=== PATIENT | male | born 1960 | race Caucasian/White ===

== ENCOUNTER 2020-05-03 09:09 | Inpatient (IN) ==
[2020-05-03] MEDS ORDERED: Morphine Sulfate 2 MG/ML SYRINGE IVP ONE (09:34)
[2020-05-03 10:21] LABS: Basophils # 0.1 K/mcL (0.0-0.2); Basophils % 0.9 %; Eosinophils # 0.3 K/mcL (0.0-0.6); Eosinophils % 3.7 %; Hematocrit 43.4 % (37.5-50.1); Immature Granulocytes % 0.3 % (0-4); Lymphocytes # 1.8 K/mcL (0.6-4.6); Mean Corpuscular HGB Conc 34.6 g/dL (31.6-35.5); Mean Corpuscular Hemoglobin 37.7 pg (28.0-33.3); Mean Platelet Volume 9.7 fL (9.4-12.4); Monocytes # 0.6 K/mcL (0.0-1.3); Monocytes % 9.1 %; Neutrophils # 4.2 K/mcL (1.6-8.9); Platelet Count 226 K/mcL (140-400); Red Blood Count 3.98 M/mcL (4.19-5.50); Red Cell Distribution Width 12.2 % (11.5-14.5)
[2020-05-03 10:34] LABS: BUN/Creatinine Ratio 11 (6-26); Blood Urea Nitrogen 8 mg/dL (8-23); Calcium 9.3 mg/dL (8.6-10.3); Carbon Dioxide 25 mEq/L (23-29); Chloride 103 mEq/L (98-107); Glucose 74 mg/dL (70-105); Osmolality,Calculated 279 (280-300); Potassium 3.7 mEq/L (3.5-5.1); Sodium 136 mEq/L (136-145); eGFR For African Americans > 60 (> 60); eGFR For Non-African Americans > 60 (> 60)
[2020-05-03] MEDS ORDERED: Ondansetron 4 MG/2 ML VIAL IVP PRN (11:35)
[2020-05-03] MEDS ORDERED: *HR* OxyCODONE Immed Rel 5 MG TABLET PO PRN (11:35)
[2020-05-03] MEDS ORDERED: Naloxone 0.4 MG/ML INJ IVP PRN (11:35)
[2020-05-03] MEDS ORDERED: Acetaminophen 325 MG TABLET PO PRN (11:35)
[2020-05-03] MEDS: *HR* HYDROcodone/Acet 5/325 mg TABLET PO PRN ×2 (14:09→20:25)
[2020-05-03] MEDS: Gabapentin 300 MG CAPSULE PO SCH ×2 (14:09→20:25)
[2020-05-03] MEDS: *HR* Heparin 5,000 UNIT/ML VIAL SQ SCH (17:07)
[2020-05-04 04:03] LABS: BUN/Creatinine Ratio 15 (6-26); Blood Urea Nitrogen 12 mg/dL (8-23); Calcium 9.2 mg/dL (8.6-10.3); Carbon Dioxide 27 mEq/L (23-29); Chloride 102 mEq/L (98-107); Glucose 93 mg/dL (70-105); Osmolality,Calculated 281 (280-300); Potassium 4.3 mEq/L (3.5-5.1); Sodium 136 mEq/L (136-145); eGFR For African Americans > 60 (> 60); eGFR For Non-African Americans > 60 (> 60)
[2020-05-04] MEDS: *HR* Heparin 5,000 UNIT/ML VIAL SQ SCH (06:45)
[2020-05-04] MEDS ORDERED: *HR* Acetylcysteine 20% 600 MG/3 ML ORAL SYRINGE PO SCH (09:00)
[2020-05-04] MEDS ORDERED: Cholecalciferol (D-3) 1,000 UNIT (25MCG) TABLET PO SCH (09:00)
[2020-05-04] MEDS: Gabapentin 300 MG CAPSULE PO SCH (09:03)
[2020-05-04] MEDS: *HR* HYDROcodone/Acet 5/325 mg TABLET PO PRN (09:07)
[2020-05-04] MEDS ORDERED: Albuterol 2.5 MG/3 ML NEBULIZER IH PRN (13:23)
[2020-05-04] MEDS ORDERED: Ondansetron 4 MG/2 ML VIAL IVP PRN (13:23)
[2020-05-04] MEDS ORDERED: *HR* HYDROmorphone (PF) 1 MG/ML SYRINGE IVP PRN (13:23)
[2020-05-04] MEDS ORDERED: *HR* OxyCODONE Immed Rel 5 MG TABLET PO PRN (13:23)
[2020-05-04] MEDS ORDERED: Acetaminophen IV 1,000 MG/100 ML BAG IVPB ONE (13:25)
[2020-05-04] MEDS ORDERED: Vancomycin 1,000 MG VIAL ONE (13:30)
[2020-05-04] MEDS ORDERED: TOTAL JOINT MIXTURE (100ML) INTRAART ONE (13:45)
[2020-05-04] MEDS ORDERED: Povidone-Iodine 45 ML, Sodium Chloride IRRigation 1,000 ML IR ONE (13:45)
[2020-05-04] MEDS ORDERED: *HR* Midazolam HCl 2 MG/2 ML VIAL ONE (14:02)
[2020-05-04] MEDS ORDERED: *HR* HYDROMORPHONE 2 MG/ML VIAL ONE (14:02)
[2020-05-04] MEDS ORDERED: *HR* Propofol 200 MG/20 ML VIAL IVP ONE (14:02)
[2020-05-04] MEDS ORDERED: Lidocaine -MPF 2% 2 ML VIAL ONE (14:03)
[2020-05-04] MEDS ORDERED: Lidocaine -MPF 4% 5 ML AMPUL ONE (14:04)
[2020-05-04] MEDS ORDERED: *HR* Rocuronium Bromide 50 MG/5 ML VIAL ONE ×2 (14:04→16:26)
[2020-05-04] MEDS ORDERED: *HR* PHENYLEPHRINE 1,000 MCG/10 ML SYRINGE IVP ONE ×2 (14:45→17:00)
[2020-05-04] MEDS ORDERED: Ondansetron 4 MG/2 ML VIAL ONE (14:57)
[2020-05-04] MEDS ORDERED: Dexamethasone 4 MG/ML VIAL ONE (14:57)
[2020-05-04] MEDS ORDERED: Tranexamic Acid 1,000 MG/10 ML VIAL ONE (15:04)
[2020-05-04] MEDS ORDERED: Sugammadex Sodium 200 MG/2 ML VIAL IV ONE (17:40)
[2020-05-04] MEDS ORDERED: Ketorolac 30 MG/ML VIAL IVP ONE (18:32)
[2020-05-04] MEDS ORDERED: *HR* Labetalol 100 MG/20 ML MDV IVP PRN (19:03)
[2020-05-04] MEDS: *HR* Labetalol 20 MG/4 ML SYRINGE IVP ONE ×2 (19:05→19:20)
[2020-05-04] MEDS ORDERED: Ringers Solution, Lactated 1,000 ML IVC SCH (20:05)
[2020-05-04] MEDS ORDERED: Sennosides 8.6 MG TABLET PO PRN (20:05)
[2020-05-04] MEDS ORDERED: *HR* Promethazine 25 MG/ML VIAL IM PRN (20:05)
[2020-05-04] MEDS ORDERED: MOM Conc 10 ML UD.LIQ PO PRN (20:05)
[2020-05-05] MEDS: CeFAZolin 2 GM/120 ML BAG IVPB SCH ×2 (00:19→07:37)
[2020-05-05] MEDS: Multivit/Ca/Min/Fe/FA 1 TAB TABLET PO SCH (07:37)
[2020-05-05] MEDS: Ascorbic Acid 500 MG TABLET PO SCH ×2 (07:37→15:36)
[2020-05-05] MEDS: Gabapentin 300 MG CAPSULE PO SCH ×2 (15:36→21:08)
[2020-05-05] MEDS: Aspirin Enteric Coated 81 MG Tablet PO SCH (17:54)
[2020-05-05] MEDS: cephALEXin 500 MG CAPSULE PO SCH (21:09)
[2020-05-06 01:55] LABS: Basophils % 0.2 %; Eosinophils % 0.2 %; Hematocrit 38.8 % (37.5-50.1); Hemoglobin 13.5 g/dL (12.9-16.9); Immature Granulocytes % 0.4 % (0-4); Lymphocytes # 1.4 K/mcL (0.6-4.6); Lymphocytes % 14.3 %; Mean Corpuscular HGB Conc 34.8 g/dL (31.6-35.5); Mean Corpuscular Hemoglobin 37.7 pg (28.0-33.3); Mean Corpuscular Volume 108.4 fL (83.0-100.0); Mean Platelet Volume 10.3 fL (9.4-12.4); Monocytes # 1.1 K/mcL (0.0-1.3); Monocytes % 11.2 %; Platelet Count 199 K/mcL (140-400); Red Blood Count 3.58 M/mcL (4.19-5.50); Red Cell Distribution Width 11.9 % (11.5-14.5); Segmented Neutrophils % 73.7 %; White Blood Count 9.5 K/mcL (4.3-11.1)
[2020-05-06 07:06] VITALS: BP 162/79
[2020-05-06] MEDS: Multivit/Ca/Min/Fe/FA 1 TAB TABLET PO SCH (07:39)
[2020-05-06] MEDS: Aspirin Enteric Coated 81 MG Tablet PO SCH (07:39)
[2020-05-06] MEDS: cephALEXin 500 MG CAPSULE PO SCH (07:39)
[2020-05-06] MEDS: Gabapentin 300 MG CAPSULE PO SCH ×2 (07:39→15:00)
[2020-05-06] MEDS: Ascorbic Acid 500 MG TABLET PO SCH ×2 (07:39→15:00)
[2020-05-06] MEDS ORDERED: Valsartan 80 MG TABLET PO SCH (09:00)
[2020-05-06 17:54] LABS: Adenovirus Not Detected (Not Detect); Coronavirus 229E Not Detected (Not Detect); Coronavirus HKU1 Not Detected (Not Detect); Coronavirus NL63 Not Detected (Not Detect); Coronavirus OC43 Not Detected (Not Detect)
[2020-05-06 17:55] LABS: Bordetella Pertussis Not Detected (Not Detect); Chlamydophila pneumoniae Not Detected (Not Detect); Human Metapneumovirus Not Detected (Not Detect); Human Rhinovirus/Enterovirus Not Detected (Not Detect); Influenza A Subtype 2009 H1 Not Detected (Not Detect); Influenza B Not Detected (Not Detect); Mycoplasma pneumoniae Not Detected (Not Detect); Parainfluenza Virus 1 Not Detected (Not Detect); Parainfluenza Virus 2 Not Detected (Not Detect); Parainfluenza Virus 3 Not Detected (Not Detect); Parainfluenza Virus 4 Not Detected (Not Detect); Respiratory Syncytial Virus Not Detected (Not Detect); SARS-CoV-2 Not Detected (Not Detect)
== END 2020-05-06 19:06 | DRG 323 ==
LOC: EMEROOARM 09:09 → 3NENU 09:09 → SUATTDRO 11:04 → 3NENU 11:50 → SUATTDRO 05-04 13:45
PROVIDERS: ADMIT Internal Medicine; ATTEND Student in an Organized Health Care Education/Training Program